=== PATIENT | female | born 1970 | race Caucasian/White ===

== ENCOUNTER 2018-10-13 20:37 | Emergency (ER) | payer OTHER ==
[~2018-10-13] VITALS: Ht 162.6 cm; Wt 102.1 kg
[2018-10-13] MEDS ORDERED: XIFAXAN550 M1 (21:14)
[2018-10-13 22:02] VITALS: BP 105/65
== END 2018-10-13 22:00 | disposition home or self-care (01) ==
LOC: ER 20:37
DX: S80.12XA Contusion of left lower leg, initial encounter (principal); I83.813 Varicose veins of bilateral lower extremities with pain; K72.90 Hepatic failure, unspecified without coma; K74.60 Unspecified cirrhosis of liver; Z91.030 Bee allergy status; Z88.6 Allergy status to analgesic agent; Z88.8 Allergy status to other drugs, medicaments and biological substances; X58.XXXA Exposure to other specified factors, initial encounter; Y92.89 Other specified places as the place of occurrence of the external cause; Y93.89 Activity, other specified; Y99.8 Other external cause status